=== PATIENT | male | born 1975 | race Caucasian/White ===

== ENCOUNTER 2019-07-28 21:38 | Emergency (ER) | payer BC ==
[~2019-07-28] VITALS: Ht 170.2 cm; Wt 72.0 kg
--- NOTE | 2019-07-28 21:50 | NUR ---
PT BIB EMS WITH BECKETT, PHOTOPHOBIA. PT DENIES NAUSEA, HEAD TRAUMA, NO HX OF SAME. PT ONNECTED TO ALL MONITORING, CALL LIGHT WITHIN REACH, ALL SAFETY MEASURES IN PLACE. FAMILY AT BS FOR SUPPORT.
[2019-07-28] MEDS ORDERED: METOCLOPRAMIDE 5 MG/ML, 2ML IVPush ONE (22:00)
[2019-07-28] MEDS ORDERED: SODIUM CHLORIDE FLUSH 10ML SYR IVF ONE (22:00)
[2019-07-28] MEDS ORDERED: ONDANSETRON 2MG/ML, 2ML IVPush ONE (22:00)
[2019-07-28] MEDS ORDERED: OMNIPAQUE 350 MG/ML, 100ML BOTTLE ONE (22:08)
[2019-07-28] MEDS ORDERED: MORPHINE SULFATE 4 MG/ML, 1ML ONE ×2 (22:27→23:58)
[2019-07-28] MEDS ORDERED: ONDANSETRON 2MG/ML, 2ML ONE (22:27)
[2019-07-28] MEDS ORDERED: METOCLOPRAMIDE 5 MG/ML, 2ML ONE (22:27)
[2019-07-28] MEDS: MORPHINE SULFATE 4 MG/ML, 1ML IVPush PRN (22:29)
[2019-07-28] MEDS ORDERED: PLEASE ENTER HEIGHT AND WEIGHT MC SCH (22:30)
[2019-07-28] MEDS ORDERED: PLEASE ENTER ALLERGIES MC SCH (22:30)
[2019-07-28 22:33] LABS: BASOPHILS # (AUTO) 0.03 x10^3/uL (0-0.1); BASOPHILS % (AUTO) 0 % (0-1); EOSINOPHILS # (AUTO) 0.12 x10^3/uL (0-0.4); EOSINOPHILS % (AUTO) 1 % (1-7); LYMPHOCYTES # (AUTO) 1.39 x10^3/uL (1-3.4); LYMPHOCYTES % (AUTO) 16 % (22-44); MD NO; MEAN CORPUSCULAR HGB CONC 34.2 g/dL (33.2-36.2); MEAN CORPUSCULAR VOLUME 93.6 fL (81-97); MONOCYTES # (AUTO) 0.65 x10^3/uL (0.2-0.8); MONOCYTES % (AUTO) 7 % (2-9); NEUTROPHILS # (AUTO) 6.75 x10^3/uL (1.8-6.8); NEUTROPHILS % (AUTO) 76 % (42-75); PLATELET COUNT 238 x10^3/uL (130-400); RED BLOOD COUNT 4.38 x10^6/uL (4.38-5.82); RED CELL DISTRIBUTION WIDTH 12.5 % (9.4-14.8)
[2019-07-28 22:41] LABS: ALANINE AMINOTRANSFERASE 51 U/L (12-78); ALBUMIN 3.6 g/dL (3.4-5.0); ANION GAP 6 mmol/L (5-15); CALCIUM 8.3 mg/dL (8.5-10.1); CHLORIDE 102 mmol/L (98-107); CREATININE 0.88 mg/dL (0.7-1.3)
[2019-07-28 22:43] LABS: ALKALINE PHOSPHATASE 56 U/L (45-117); BILIRUBIN,TOTAL 0.3 mg/dL (0.2-1.0); TOTAL PROTEIN 6.8 g/dL (6.4-8.2)
[2019-07-28] MEDS ORDERED: LIDOCAINE-MPF 1%, 5ML INFIL ONE (23:00)
[2019-07-28 23:09] LABS: INTERNATIONAL NORMALIZED RATIO 0.99 (0.93-1.1); PROTHROMBIN TIME 10.5 Seconds (9.6-11.5)
[2019-07-28 23:45] LABS: GLUCOSE, CSF 63 mg/dL (40-80); TOTAL PROTEIN,CSF 36 mg/dL (15-45)
[2019-07-29] MEDS: MORPHINE SULFATE 4 MG/ML, 1ML IVPush PRN
--- NOTE | 2019-07-29 00:05 | NUR ---
PT UPDATED ON POC AND MEDICATED PER MAR FOR PAIN.
[2019-07-29 01:21] VITALS: BP 129/78
== END 2019-07-29 01:25 | disposition home or self-care (01) ==
LOC: ED 07-29 01:09
DX: G43.C0 Periodic headache syndromes in child or adult, not intractable (principal)
CPT/HCPCS: 36415; 62270; 70450; 70496; 70498; 80053; 82945; 84157; 85025; 85610; 85730; 87070; 87205; 87252; 89051; 93005; 96374; 96375; 96376; 99284; J2270; J2405; J2765; Q9967

== ENCOUNTER → 2020-06-09 | Outpatient (CLI) | payer BC | END | disposition home or self-care (01) | LOC: STAR 07:58 | PROVIDERS: ATTEND Surgery | DX: Z20.828 Contact with and (suspected) exposure to other viral communicable diseases (principal); K42.9 Umbilical hernia without obstruction or gangrene | CPT/HCPCS: 87635 ==

== ENCOUNTER 2020-06-15 11:27 | Day surgery (SDC) | payer BC ==
[~2020-06-15] VITALS: Ht 170.2 cm; Wt 75.1 kg
[~2020-06-15 11:27] MED LIST: BUPIVACAINE/PF 0.5% ONE; EPINEPHRINE 1 MG/ML, 1ML ONE
[2020-06-15 11:51] VITALS: BP 131/89
[2020-06-15] MEDS ORDERED: CHLORHEXIDINE 15 ML UDC ONE (11:54)
[2020-06-15] MEDS ORDERED: LACTATED RINGERS 1,000 ML IV SCH (12:00)
[2020-06-15] MEDS ORDERED: CHLORHEXIDINE 15 ML UDC MM ONE (12:00)
[2020-06-15] MEDS ORDERED: FENTANYL PF 250 MCG/5ML ONE ×2 (13:06→14:01)
[2020-06-15] MEDS ORDERED: PROPOFOL 10 MG/ML, 20ML ONE (13:09)
[2020-06-15] MEDS ORDERED: ROCURONIUM 10 MG/ML,10ML ONE (13:09)
[2020-06-15] MEDS ORDERED: GLYCOPYRROLATE 0.2MG/1ML, 5ML ONE (13:09)
[2020-06-15] MEDS ORDERED: KETOROLAC 30 MG/1 ML ONE (13:09)
[2020-06-15] MEDS ORDERED: SUCCINYLCHOLINE 20 MG/ML, 10ML ONE (13:09)
[2020-06-15] MEDS ORDERED: CEFAZOLIN 1,000 MG ONE (13:09)
[2020-06-15] MEDS ORDERED: ONDANSETRON 2MG/ML, 2ML ONE (13:09)
[2020-06-15] MEDS ORDERED: DEXAMETHASONE 4 MG/ML, 1ML ONE (13:09)
[2020-06-15] MEDS ORDERED: NEOSTIGMINE 1 MG/ML, 10ML ONE (13:09)
[2020-06-15] MEDS ORDERED: EPHEDRINE 50 MG/ML, 1ML IVPush PRN (14:00)
[2020-06-15] MEDS ORDERED: OXYcodone 5 MG/5 ML ORAL.SOL UDC PO PRN (14:00)
[2020-06-15] MEDS ORDERED: LORazepam 2 MG/ML, 1ML IVPush PRN (14:00)
[2020-06-15] MEDS ORDERED: PROMETHAZINE 25 MG/ML, 1ML IVPush PRN (14:00)
[2020-06-15] MEDS ORDERED: METHOCARBAMOL 1,000 MG in DEXTROSE 5% 100 ML IV PRN (14:00)
[2020-06-15] MEDS ORDERED: MEPERIDINE/PF 25MG/0.5ML IVPush PRN (14:00)
[2020-06-15] MEDS ORDERED: hydrALAzine 20 MG/ML, 1ML IV PRN (14:00)
[2020-06-15] MEDS ORDERED: HYDROmorphone 1 MG/ML, 1ML INJ IVPush PRN (14:00)
[2020-06-15] MEDS ORDERED: LABETALOL 5MG/ML, 20ML IV PRN (14:00)
[2020-06-15] MEDS ORDERED: ACETAMINOPHEN 325 MG TABLET PO PRN (14:00)
[2020-06-15] MEDS ORDERED: ONDANSETRON 2MG/ML, 2ML IVPush PRN (14:00)
[2020-06-15] MEDS ORDERED: OXYcodone 5 MG/5 ML ORAL.SOL UDC ONE (14:28)
[2020-06-15] MEDS ORDERED: HYDROmorphone 1 MG/ML, 1ML INJ ONE (14:28)
[2020-06-15] MEDS ORDERED: FENTANYL PF 100 MCG/2ML ONE (14:28)
[2020-06-15] MEDS: FENTANYL PF 100 MCG/2ML IV PRN ×2 (14:31→14:37)
== END 2020-06-15 16:05 | disposition home or self-care (01) ==
LOC: OUT 11:27
PROVIDERS: ATTEND Surgery
DX: K42.0 Umbilical hernia with obstruction, without gangrene (principal); Z83.3 Family history of diabetes mellitus
CPT/HCPCS: 49653; C1781; J0171; J0330; J0690; J1100; J1885; J2405; J2704; J2710; J3010; J7120; S2900